=== PATIENT | female | born 1970 | race Caucasian/White ===

== ENCOUNTER → 2019-03-26 16:55 | Outpatient (CLI) | payer SELFPAY ==
[2019-01-09 10:34] VITALS: BMI 23.1
--- NOTE | 2019-03-26 17:01 | CT_ITS ---
STUDY: CT ABDOMEN AND PELVIS WITH CONTRAST REASON FOR EXAM: Female, 48 years old. Palpable rectal mass. TECHNIQUE: Transaxial images were obtained from the dome of the diaphragm to the symphysis pubis with oral contrast. 100 cc Isovue-300 IV contrast was administered. Sagittal and coronal images were reconstructed. Individualized dose optimization techniques were used for this CT. COMPARISON: None. FINDINGS: Bowel: A lobular, heterogenous mass, difficult to separate from the distal rectal wall, extends cephalad into the bilateral perirectal fat, right greater than left, 8.5 x 4.7 x 6.7 cm TRV X AP X craniocaudad. A small focus of air posteriorly (series 2 image 97) is difficult to localize in regards the rectal lumen. The portions of the mass extending into the more cephalad perirectal fat have low density centrally. More inferiorly, in the fat of the right medial buttocks, there is a small collection of fluid and air measuring 2 cm diameter. This mass narrows the distal rectal wall with mildly prominent stool within the more proximal large bowel but no luminal dilation. The mass is difficult to separate from the right greater than left pelvic floor muscles. The remainder of the bowel is unremarkable. Normal appendix. Partially visualized lower chest: Lung bases unremarkable. Liver: No concerning lesions. Gallbladder and biliary tree: No visible gallstones. No pericholecystic inflammation. No biliary ductal dilation. Pancreas: No pancreatic lesions or inflammation. Spleen: Normal size, no splenic lesions. Adrenal glands: 1.8 cm diameter indeterminant density left adrenal mass. Right adrenal gland normal. Kidneys and ureters: No hydronephrosis or renal stones. No concerning masses. No ureteral dilation. Urinary bladder: No stones or wall thickening. A fat plane is evident between the mass and the urinary bladder. Reproductive: The right lateral aspect of the vagina is difficult to separate from a portion of the mass. Small fibroids are incidentally noted in the uterine fundus, largest 2.6 cm diameter. Both ovaries are normal and separate from the mass. Vascular: No abdominal aortic aneurysm. The systemic, portal, and mesenteric veins are patent. Minimal atherosclerosis. Retroperitoneal and peritoneal spaces: Mild lymphadenopathy in the perirectal fat cephalad to the mass. No free air or free fluid. Osseous: No acute osseous abnormality. No suspicious osseous lesions. Abdominal and pelvic wall: Shotty mildly prominent but not definitively pathologic right greater than left inguinal lymph nodes. CT/Abdomen/Pelvis WITH Contrast IMPRESSION: Lower pelvic mass, probably rectal in origin, described in detail above. The portions of the mass extending into the right greater than left perirectal fat have low density centrally which could represent necrosis or superimposed infection/abscess due to communication with the rectal lumen. A small focus of air and fluid along the posterior margin of the rectum just above the mass is difficult to localize and may be extraluminal, communicating with the left perirectal portion of the mass. An additional 2 cm diameter collection of fluid and air in the right medial buttock subcutaneous fat could represent sequela of a fistulous tract. The right lateral aspect of the vagina is difficult to separate from the anterior aspect of the mass, and the mass is difficult to separate from the pelvic floor muscles, likely representing invasion of these structures. Mild perirectal lymphadenopathy cephalad to the mass is concerning for metastatic disease. Indeterminate 1.8 cm diameter left adrenal lesion could represent a metastasis or an adenoma; comparison with priors would be helpful follow-up noncontrast CT might differentiate if no priors are available. Mildly prominent right greater than left inguinal lymph nodes; metastatic disease is possible but not definitive here as well. The more proximal large bowel contains prominent stool but is not dilated suggestive of constipation perhaps due to the mass. No shirin obstruction however. Electronically Signed: Cristobal Antonio, at 19:42 EST Tel , Service support ,
== END ==
PROVIDERS: Family Provider Internal Medicine; PCP Internal Medicine; Referring Provider Internal Medicine; Visit Provider Internal Medicine
DX: K62.89 Other specified diseases of anus and rectum (principal)
CPT/HCPCS: 74177; Q9967

== ENCOUNTER → 2019-03-27 11:08 | Outpatient (CLI) | payer OTHER, SELFPAY ==
[2019-01-09 10:34] VITALS: BMI 23.1
[2019-03-30 16:09] LABS: HPV Reflexed? NOT INDICATED
== END ==
PROVIDERS: Family Provider Internal Medicine; PCP Internal Medicine; Referring Provider Internal Medicine; Visit Provider Internal Medicine
DX: Z01.419 Encounter for gynecological examination (general) (routine) without abnormal findings (principal)
CPT/HCPCS: 88175; G0145

== ENCOUNTER 2019-04-02 05:19 | Day surgery (SDC) | payer SELFPAY ==
[2019-03-29 10:16] VITALS: BMI 23.5
[2019-04-02] VITALS (7 sets, daily range): BP systolic 102–110; BP diastolic 66–83; PULSE 70–106; RESP 14–16; TEMP 36.2–36.6; O2SAT 99–100; BMI 22.8
--- NOTE | 2019-04-02 05:46 | PCM.HP.BLA ---
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: No Is patient in pain?: No Allergies No Known Allergies Allergy (Verified 03/29/19 10:17) Medications multivitamin tablet 1 tab PO DAILY 01/09/19 [History Confirmed 03/29/19] Is last menstrual period known: No Post menopausal: Yes Patient : No PFSH Medical History Anxiety (Acute) Pilonidal abscess (Acute) Surgical History No history of previous surgery (Acute) Social History (Updated 03/29/19 @ 14:44 by Jatinder Maxwell MD) Smoking Status: Never smoker alcohol intake: never substance use type: does not use HPI HPI HPI: CESIA SWANSON is a 48 F who presents to the office today for HPI HPI Surgical H&P: Yes HPI: CESIA SWANSON, is a 48 F who presents to the office today for surgical consultation regarding rectal bleeding and rectal mass. The patient was referred by her primary care physician Dr. Georgette Warren and a written copy of my surgical consult and recommendations will be returned to her. Upon interviewing the patient today she claims that for 2 years she has had rectal bleeding blood streaking on the stool. It was on a routine primary care check that it was detected that she had a rectal mass. On March 06 she had laboratory obtained demonstrating hemoglobin of 9.8 and hematocrit of 29.5. Previously November 2017 her hemoglobin has been 13.2. She otherwise denies abdominal pain. She states that she does weigh herself and that she is not seemingly lost any weight. She denies abdominal pain. No nausea or vomiting. She claims that she otherwise feels well. Family history notable for brother with Crohn's and an uncle with diabetes. Because of the rectal mass at the [facility] on March 26, [address] scan performed. The full interpretation follows. This noticed that there is a rectal mass measuring 8.5 x 4.7 x 6.7 cm. There is seems to be vaginal wall involvement. There appears to be localized lymphadenopathy. In addition there is a small focus of air along the posterior margin of the rectum and its extraluminal. There is air in the right medial buttock area and subcutaneous fat and a fistulous tract. It is of note that 2 months ago in the office here she had what appeared to be a pilonidal cyst that was drained. She was seen back that seemed to improve her symptoms. At that time there was not evidence of the primary issue. And the patient made no comment regarding her 2-year history of rectal bleeding at that time. [facility] Imaging Services [address] [place] [address] Abdomen/Pelvis WITH Contrast MR#: [id number]:[id number] Name: Placido SWANSON #:[id number] : 1970F 48 From: Cristobal Antonio MD PCP:Georgtete Warren MD Status:REG CLI Study:Abdomen/Pelvis WITH Contrast Date of Exam:03/26/19 Exam#[id number] Ordering Dr: Georgette Warren MD ADDENDUM by Cristobal Antonio MD on 03/26/19 at 1942 STUDY: CT ABDOMEN AND PELVIS WITH CONTRAST REASON FOR EXAM: Female, 48 years old. Palpable rectal mass. TECHNIQUE: Transaxial images were obtained from the dome of the diaphragm to the symphysis pubis with oral contrast. 100 cc Isovue-300 IV contrast was administered. Sagittal and coronal images were reconstructed. Individualized dose optimization techniques were used for this CT. COMPARISON: None. FINDINGS: Bowel: A lobular, heterogenous mass, difficult to separate from the distal rectal wall, extends cephalad into the bilateral perirectal fat, right greater than left, 8.5 x 4.7 x 6.7 cm TRV X AP X craniocaudad. A small focus of air posteriorly (series 2 image 97) is difficult to localize in regards the rectal lumen. The portions of the mass extending into the more cephalad perirectal fat have low density centrally. More inferiorly, in the fat of the right medial buttocks, there is a small collection of fluid and air measuring 2 cm diameter. This mass narrows the distal rectal wall with mildly prominent stool within the more proximal large bowel but no luminal dilation. The mass is difficult to separate from the right greater than left pelvic floor muscles. The remainder of the bowel is unremarkable. Normal appendix. Partially visualized lower chest: Lung bases unremarkable. Liver: No concerning lesions. Gallbladder and biliary tree: No visible gallstones. No pericholecystic inflammation. No biliary ductal dilation. Pancreas: No pancreatic lesions or inflammation. Spleen: Normal size, no splenic lesions. Adrenal glands: 1.8 cm diameter indeterminant density left adrenal mass. Right adrenal gland normal. Kidneys and ureters: No hydronephrosis or renal stones. No concerning masses. No ureteral dilation. Urinary bladder: No stones or wall thickening. A fat plane is evident between the mass and the urinary bladder. Reproductive: The right lateral aspect of the vagina is difficult to separate from a portion of the mass. Small fibroids are incidentally noted in the uterine fundus, largest 2.6 cm diameter. Both ovaries are normal and separate from the mass. Vascular: No abdominal aortic aneurysm. The systemic, portal, and mesenteric veins are patent. Minimal atherosclerosis. Retroperitoneal and peritoneal spaces: Mild lymphadenopathy in the perirectal fat cephalad to the mass. No free air or free fluid. Osseous: No acute osseous abnormality. No suspicious osseous lesions. Abdominal and pelvic wall: Shotty mildly prominent but not definitively pathologic right greater than left inguinal lymph nodes. 03/26/191941 Date cc: Georgette Warren MD ~* Signed ADDENDUM by Cristobal Antonio MD on 03/26/[address]/Abdomen/Pelvis WITH Contrast IMPRESSION: Lower pelvic mass, probably rectal in origin, described in detail above. The portions of the mass extending into the right greater than left perirectal fat have low density centrally which could represent necrosis or superimposed infection/abscess due to communication with the rectal lumen. A small focus of air and fluid along the posterior margin of the rectum just above the mass is difficult to localize and may be extraluminal, communicating with the left perirectal portion of the mass. An additional 2 cm diameter collection of fluid and air in the right medial buttock subcutaneous fat could represent sequela of a fistulous tract. The right lateral aspect of the vagina is difficult to separate from the anterior aspect of the mass, and the mass is difficult to separate from the pelvic floor muscles, likely representing invasion of these structures. Mild perirectal lymphadenopathy cephalad to the mass is concerning for metastatic disease. Indeterminate 1.8 cm diameter left adrenal lesion could represent a metastasis or an adenoma; comparison with priors would be helpful follow-up noncontrast CT might differentiate if no priors are available. Mildly prominent right greater than left inguinal lymph nodes; metastatic disease is possible but not definitive here as well. The more proximal large bowel contains prominent stool but is not dilated suggestive of constipation perhaps due to the mass. No shirin obstruction however. N.B. : Dr. Georgette Warren MD, confirmed on 03/27/2019 06:32:18 (ET) that the referring physician received the radiology report. Electronically Signed: Cristobal Antonio, at 19:42 EST Tel , Service support , 03/27/19 0639 Date cc: Georgette Warren MD ~* Signed STUDY: CT ABDOMEN AND PELVIS WITH CONTRAST REASON FOR EXAM: Female, 48 years old. Palpable rectal mass. TECHNIQUE: Transaxial images were obtained from the dome of the diaphragm to the symphysis pubis with oral contrast. 100 cc Isovue-300 IV contrast was administered. Sagittal and coronal images were reconstructed. Individualized dose optimization techniques were used for this CT. COMPARISON: None. FINDINGS: Bowel: A lobular, heterogenous mass, difficult to separate from the distal rectal wall, extends cephalad into the bilateral perirectal fat, right greater than left, 8.5 x 4.7 x 6.7 cm TRV X AP X craniocaudad. A small focus of air posteriorly (series 2 image 97) is difficult to localize in regards the rectal lumen. The portions of the mass extending into the more cephalad perirectal fat have low density centrally. More inferiorly, in the fat of the right medial buttocks, there is a small collection of fluid and air measuring 2 cm diameter. This mass narrows the distal rectal wall with mildly prominent stool within the more proximal large bowel but no luminal dilation. The mass is difficult to separate from the right greater than left pelvic floor muscles. The remainder of the bowel is unremarkable. Normal appendix. Partially visualized lower chest: Lung bases unremarkable. Liver: No concerning lesions. Gallbladder and biliary tree: No visible gallstones. No pericholecystic inflammation. No biliary ductal dilation. Pancreas: No pancreatic lesions or inflammation. Spleen: Normal size, no splenic lesions. Adrenal glands: 1.8 cm diameter indeterminant density left adrenal mass. Right adrenal gland normal. Kidneys and ureters: No hydronephrosis or renal stones. No concerning masses. No ureteral dilation. Urinary bladder: No stones or wall thickening. A fat plane is evident between the mass and the urinary bladder. Reproductive: The right lateral aspect of the vagina is difficult to separate from a portion of the mass. Small fibroids are incidentally noted in the uterine fundus, largest 2.6 cm diameter. Both ovaries are normal and separate from the mass. Vascular: No abdominal aortic aneurysm. The systemic, portal, and mesenteric veins are patent. Minimal atherosclerosis. Retroperitoneal and peritoneal spaces: Mild lymphadenopathy in the perirectal fat cephalad to the mass. No free air or free fluid. Osseous: No acute osseous abnormality. No suspicious osseous lesions. Abdominal and pelvic wall: Shotty mildly prominent but not definitively pathologic right greater than left inguinal lymph nodes. CT/Abdomen/Pelvis WITH Contrast IMPRESSION: Lower pelvic mass, probably rectal in origin, described in detail above. The portions of the mass extending into the right greater than left perirectal fat have low density centrally which could represent necrosis or superimposed infection/abscess due to communication with the rectal lumen. A small focus of air and fluid along the posterior margin of the rectum just above the mass is difficult to localize and may be extraluminal, communicating with the left perirectal portion of the mass. An additional 2 cm diameter collection of fluid and air in the right medial buttock subcutaneous fat could represent sequela of a fistulous tract. The right lateral aspect of the vagina is difficult to separate from the anterior aspect of the mass, and the mass is difficult to separate from the pelvic floor muscles, likely representing invasion of these structures. Mild perirectal lymphadenopathy cephalad to the mass is concerning for metastatic disease. Indeterminate 1.8 cm diameter left adrenal lesion could represent a metastasis or an adenoma; comparison with priors would be helpful follow-up noncontrast CT might differentiate if no priors are available. Mildly prominent right greater than left inguinal lymph nodes; metastatic disease is possible but not definitive here as well. The more proximal large bowel contains prominent stool but is not dilated suggestive of constipation perhaps due to the mass. No shirin obstruction however. Electronically Signed: Cristobal Antonio, at 19:42 EST Tel , Service support , CC: Georgette Warren MD ~ Submersible Pilot: Signed ROS General General: No weight change, appetite, fatigue, colon cancer, breast cancer or weakness HEENT HEENT: No difficulty swallowing, eye injury, eye surgery, swollen glands or hoarseness Endo Endocrine: No thyroid disease, diabetes mellitus, thyroid cancer, Hair loss, heat intolerance or cold intolerance Skin Skin: No rash or changing moles Breast Breast: No left breast lump, right breast lump, nipple discharge, breast pain, abnormal mammogram, abnormal US or breast enlargement Musc Musculoskeletal: No back problems, arthritis, rheumatoid arthritis, gout or joint pain Cardio Cardiovascular: No murmur, pacemaker, heart disease, atrial fibrillation, high blood pressure, heart attack, heart stent, palpitations, shortness of breat with exertion or chest pain Psych Psychiatric: Yes anxiety; no depression or hearing voices Resp Respiratory: No shortness of breath, No sleep apnea, No cough, No COPD, No asthma, No emphysema, No wheezing Gastro Gastrointestinal: No abdominal pain, No nausea or vomiting, Yes diarrhea, No constipation, No blood in stool, No acid reflux, No hemorrhoids, No ulcers, No gallbladder problem, No black,tarry stools Luke Hematologic: No blood thinners, No blood disorders, No bleeding, No anemia, No blood clots Neuro Neurologic: No weakness Exam Const General: cooperative Nutritional Appearance: average body habitus Orientation: alert, awake, oriented x3 Other: Patient appears to be pale. No acute distress HENMT Head: normal to inspection Chest Breast Palpation: No nipple discharge Resp Effort & Inspection: normal respiratory effort Auscultation: clear to auscultation bilaterally Cardio Rate: regular rate Rhythm: regular rhythm Heart Sounds: no murmurs GI Palpation: soft, no hepatosplenomegaly Auscultation: normal bowel sounds Other: Rectal exam was deferred to time of colonoscopy Skin General: no rashes or lesions noted Neuro Cognition: normal cognition Extrem General: no calf tenderness bilaterally Psych Affect: normal affect Assessment & Plan Problems 1. Rectal mass K62.89 Plan Today was an extensive 60-minute appointment with the patient and her . In detail I discussed with him the findings of the CT including the fistulous tract to the skin and the possible adjacent adherence to the vagina and the suspected lymph node involvement and a large rectal mass in addition to the seemingly benign abnormal findings of the uterus. We briefly discussed treatment options which would include chemotherapy and radiation. I suggested to them that at this time the lesion was not resectable. The patient might be a future candidate for an aggressive total abdominal hysterectomy with perineal resection vaginectomy and proctocolectomy i.e. a pelvic exenteration. They initially had concerns that performing a needle biopsy would spread the lesion. I have instructed them that there is current evidence of spread already. At this point I am strongly recommending that we perform a colonoscopy. I am recommending that we then obtain hematology oncology consultation and they are also aware that we will need radiation oncology consultation. They are aware of the technique, benefits, risks, alternatives of colonoscopy with possible biopsy. They are aware that the lesion may be partially obstructing and I may not be able to complete the entire procedure. They are aware of the importance of obtaining a tissue sample for diagnosis. They have had an opportunity to ask and have questions answered. We will schedule and expedite her care and proceed with colonoscopy already on Tuesday. I very much appreciate the kind opportunity of assisting with her surgical care CC: Dr. Georgette Maxwell M.D., F.A.C.S. Orders Orders: Colonoscopy Today K62.89, R93.5 Coding Level of Care Code 28405 Diagnoses Rectal mass K62.89 03/29/19 1444 <Electronically signed by Jatinder Maxwell MD> Date Jatinder Maxwell MD Cosigner Signature: Date (if applicable) CC: Georgette Warren MD ~ I have re-examined the patient. There are no clinical changes since date of exam.
[2019-04-02] MEDS: Lactated Ringers 1,000 ML 100 ML IV (05:51)
[2019-04-02 05:58] LABS: Internal QC Validated? YES +Cl - CLEAR BKGD; Pregnancy, Urine Negative Negative
--- NOTE | 2019-04-02 06:30 | COLBX_PTH ---
PATIENT: CESIA SWANSON LOC: EN U#:[id number] AGE/SX: 48/F ROOM: RE04/02/[address]: Dr. Jatinder Maxwell MD : 1970 BED: DIS: 04/02/2019 SPEC #: [id number] RECD: 04/02/19 09:12 STATUS: JOHNNY KAY #: [id number] GABINO: 04/02/19 06:[address]: Jatinder Maxwell DEPT: SURGICAL PATHOLOGY RECD BY: Jorge Pinzon ENTERED: 04/02/19 10:18 SP TYPE: COLON BX OTHR DR: MD Georgette Villa MD Tissues: A - Sigmoid colon biopsy B - Rectum, NOS Procedures: Surgery Specimen Level IV HEADER OPERATION: Colonoscopy (MAC) PRE-OP DIAGNOSIS: Rectal bleeding, rectal mass TISSUE SUBMITTED: A - Mid sigmoid polyp, B - Biopsy of distal rectum mass MICROSCOPIC DIAGNOSIS A. Mid sigmoid polyp, biopsy: Tubular adenoma. B. Distal rectum mass, biopsy: Fragments of tubular adenoma with focal high grade dysplasia. See comment. SHAN:william 04/03/19 COMMENT B. Focal area suspicious for carcinoma in situ and invasive carcinoma is noted. Correlation with clinical, endoscopic findings and appropriate follow up are necessary. Case has been reviewed in consultation with Dr. Christensen who concurs with the above diagnosis. IDC:AM MICROSCOPIC DESCRIPTION Slides are reviewed. GROSS DESCRIPTION A - Received in fixative is one container labeled with the patient's name and designated mid sigmoid polyp. The specimen consists of a pink-red polyp measuring 1 x 0.6 x 0.5 cm. The apparent base is inked. The polyp is bisected and submitted entirely in one cassette. B - Received in fixative is one container labeled with the patient's name and designated distal rectum mass. The specimen consists of multiple irregular fragments of light stewart soft tissue that in aggregate measure 0.5 x 0.3 x 0.1 cm. The specimen is totally submitted in one cassette. / SHAN:william 04/02/19 TC:5 CPT: 16972 x2 ADDENDUM ADDENDUM ADDENDUM ADDENDUM ADDENDUM ADDENDUM ADDENDUM ADDENDUM ADDENDUM ADDENDUM ADDENDUM ADDENDUM ADDENDUM 05/11/2019 10:10 ADDENDUM 05/11/2019 10:10 ADDENDUM 05/11/2019 10:10 ADDENDUM 05/11/2019 10:10 ADDENDUM 05/11/2019 10:10 This addendum is added to incorporate an outside pathology consultation report. The case was examined at [facility] (#[id number]) and the following diagnosis was rendered. A. Mid sigmoid polyp, biopsy: Tubulovillous adenoma. B. Distal rectum mass, biopsy: Small fragments of adenomatous mucosa with focal high grade dysplasia and a rare microscopic focus suspicious for in situ/intramucosal adenocarcinoma. Please see complete above mentioned consultation report in EMR
--- NOTE | 2019-04-02 07:02 | OP.COLON_ITS ---
Patient Name: Simona Braga Procedure Date: 04/02/2019 5:53 AM Date of : 1970 Age: 48 Procedure: Colonoscopy Indications: Rectal bleeding, Abnormal CT of the GI tract Providers: Jatinder Maxwell MD Referring MD: Georgette Warren Medicines: See the Anesthesia note for documentation of the administered medications Patient Profile: Last Colonoscopy: none. The patient's first colonoscopy is today. Complications: No immediate complications. Procedure: Pre-Anesthesia Assessment: - Prior to the procedure, a History and Physical was performed, and patient medications and allergies were reviewed. The patient's tolerance of previous anesthesia was also reviewed. The risks and benefits of the procedure and the sedation options and risks were discussed with the patient. All questions were answered, and informed consent was obtained. Prior Anticoagulants: The patient has taken no previous anticoagulant or antiplatelet agents. ASA Grade Assessment: II - A patient with mild systemic disease. After reviewing the risks and benefits, the patient was deemed in satisfactory condition to undergo the procedure. After I obtained informed consent, the scope was passed under direct vision. Throughout the procedure, the patient's blood pressure, pulse, and oxygen saturations were monitored continuously. The pediatric colonoscope was introduced through the anus and advanced to the cecum, identified by appendiceal orifice and ileocecal valve. The colonoscopy was performed without difficulty. The patient tolerated the procedure well. The quality of the bowel preparation was good. The ileocecal valve and the appendiceal orifice were photographed. Scope In: 6:34:42 AM Scope Withdrawal Time 0 hours 13 minutes 0 seconds Scope Out: 6:53:21 AM Total Procedure Duration Time 0 hours 18 minutes 39 seconds Findings: The digital rectal exam findings include palpable rectal mass. A 11 mm polyp was found in the mid sigmoid colon. The polyp was pedunculated. The polyp was removed with a hot snare. Resection and retrieval were complete. The exam was otherwise without abnormality. A fungating and sessile partially obstructing large mass was found in the distal rectum. The mass was circumferential. This was biopsied with a cold forceps for histology. Impression: - Palpable rectal mass found on digital rectal exam and on endoscopy. Biopsy obtained. - One 11 mm polyp in the mid sigmoid colon, removed with a hot snare. Resected and retrieved. - The examination was otherwise normal. Recommendation: - Discharge patient to home. - Resume previous diet. - Continue present medications. - Refer to an oncologist in 3 days. - Telephone my office for pathology results in 1 week. - Repeat colonoscopy in 1 year for surveillance. Procedure Code(s): --- Professional --- 13782, Colonoscopy, flexible; with removal of tumor(s), polyp(s), or other lesion(s) by snare technique 88803, 59, Colonoscopy, flexible; with biopsy, single or multiple Diagnosis Code(s): --- Professional --- K62.89, Other specified diseases of anus and rectum D12.5, Benign neoplasm of sigmoid colon K62.5, Hemorrhage of anus and rectum R93.3, Abnormal findings on diagnostic imaging of other parts of digestive tract CPT copyright 2017 [employer]. All rights reserved. The codes documented in this report are preliminary and upon director of blood review may be revised to meet current compliance requirements. Jatinder Maxwell MD 04/02/2019 7:01:52 AM This report has been signed electronically. Number of Addenda: 0 Note Initiated On: 04/02/2019 5:53 AM
== END 2019-04-02 07:52 | disposition home or self-care (01) ==
LOC: EN 05:21 → AC 05:22
PROVIDERS: Anesthesiology; Family Provider Internal Medicine; PCP Internal Medicine; Referring Provider Internal Medicine; Visit Provider Surgery
PROC: 0DJD8ZZ Inspection of Lower Intestinal Tract, Via Natural or Artificial Opening Endoscopic (ICD-10-PCS; CPT 45378; principal; 2019-04-02 06:25)
DX: D12.5 Benign neoplasm of sigmoid colon (principal); D12.8 Benign neoplasm of rectum; F41.9 Anxiety disorder, unspecified; Z78.0 Asymptomatic menopausal state
CPT/HCPCS: 45380; 45385; 81025; 88305; J7120; J2405

== ENCOUNTER → 2019-04-04 15:59 | Outpatient (CLI) | payer SELFPAY ==
[2019-04-02 05:40] VITALS: BMI 22.8
[2019-04-09 13:46] LABS: G6PD Quant Test 290 (146-376)
== END ==
PROVIDERS: Family Provider Internal Medicine; PCP Internal Medicine; Referring Provider Nurse Practitioner Family; Visit Provider Nurse Practitioner Family
DX: R53.82 Chronic fatigue, unspecified (principal); M62.81 Muscle weakness (generalized)
CPT/HCPCS: 36415; 82955

== ENCOUNTER 2019-05-21 21:19 | Emergency (ER) | payer SELFPAY ==
[2019-04-02 05:40] VITALS: BMI 22.8
[2019-05-21 21:20] VITALS: BP 99/64; PULSE 124; RESP 18; TEMP 39.4; O2SAT 100; BMI 23.8
[2019-05-21 21:24] VITALS: BP 99/64; PULSE 124; RESP 18; TEMP 39.4; O2SAT 100
[2019-05-21] MEDS: 0.9% Normal Saline 1,000 ML 999 ML IV (21:45)
--- NOTE | 2019-05-21 21:57 | ED.VISSUMM ---
- ER Visit Summary Date of Service: 05/21/19 Chief Complaint: Fever History of Present Illness: The patient is a 49 F who presents with fever that began today. Patient has a history of colorectal cancer and is on chemotherapy through the [facility], [place]. Patient was there today for chemotherapy treatment however they would not perform the chemotherapy because of a low white blood cell count. Patient had a fever of 101.8 at home. Patient was told to come to the emergency department because of the fever. Patient is on antibiotics for a perirectal abscess. Patient states this has been open and is draining. Patient states her pain is worse with bowel movements. Patient states that it improves with Epson salt soaks. Physical Examination: Vital signs are stable except for a tachycardia of 124. Patient does have a temperature of 103.0 here. Patient is in no acute distress. Oral mucosa is pink and moist. Neck is supple. Trachea is midline. There is no JVD. Heart was regular and tachycardic. Lungs are clear and equal bilaterally. Abdomen is soft. Bowel sounds are normal. There is no tenderness. There is no rebound or guarding noted. Cranial nerves II through XII are intact. There are no focal motor or sensory deficits noted. Skin is warm and dry. There is a perirectal abscess along the right gluteal area near the midline that is open and draining. There is induration. There is no fluctuance. Test Results: CBC shows a white blood cell count of 2.5. Absolute neutrophil count was 1.0. Hemoglobin was 8.3. Hematocrit was 26.2. Basic metabolic profile was essentially within normal limits. INR is 1.3. PTT is 29.8. Urinalysis does not show any evidence of urinary tract infection. Lactate was normal. Blood cultures were drawn and are pending. Portable chest x-ray was obtained. There is no acute cardiopulmonary process. This was interpreted by myself and the radiologist. Emergency Department Course and Treatment: Patient was given Tylenol here. Patient was given IV fluids. Patient was started on meropenem and vancomycin. Patient was feeling better on reevaluation. Patient was advised that she would need to be admitted. Patient wants to go to the [facility] at [facility] where she gets all of her cancer treatments. Case was discussed with the transfer center at the [facility]. Patient will be transferred there. Patient understands and is agreeable with the plan. All questions were answered. Disposition: Transfer to [facility] Impression: Neutropenic fever This note was generated with Next audience dictation software. It may contain incorrect words, spelling, and punctuation that were not noted in review of the chart prior to signing ED Disposition - Plan for ED Patient: Disposition: [facility] Diagnosis: Neutropenic fever Referrals: Georgette Warren MD [Primary Care Provider] -
[2019-05-21 22:19] VITALS: BP 106/66; PULSE 106; RESP 18; O2SAT 97
[2019-05-21 22:24] VITALS: TEMP 37.3
[2019-05-21 22:54] LABS: ALB/GLOB Ratio 0.7 RATIO (0.9-2.4); AST(SGOT) 22 U/L (15-37); Alanine Aminotransfer ALT/SGPT 49 U/L (13-56); Albumin, Serum 2.7 g/dL (3.2-5.0); Alkaline Phosphatase 58 U/L (45-117); Anion Gap 8 (5-15); BUN 15 mg/dL (7-18); BUN/Creat Ratio 21.3 RATIO (10-20); Calcium,Total 8.3 mg/dL (8.5-10.1); Chloride 108 mmol/L (98-107); EST Glomerular Filtration Rate 93 mL/min (>60); Est Glom Filt Rate - Afr Amer 113 mL/min (>60); Globulin 3.9 g/dL (2.2-4.2); Glucose 109 mg/dL (74-106); Potassium 3.4 mmol/L (3.5-5.1); Protein, Total 6.6 g/dL (6.4-8.2); Sodium Level 141 mmol/L (136-145)
[2019-05-21] MEDS: Acetaminophen 500 MG Tablet 1000 MG PO (22:55)
[2019-05-21 22:58] LABS: Absolute Lymphocyte Count 0.53 X10^3/uL (0.83-4.51); Basophil# 0.01 X10^3/uL; Basophil% 0.4 % (0-1); Eosinophil# 0.08 X10^3/uL; Eosinophils% 3.2 % (0-5); Hematocrit 26.2 % (37-47); Hemoglobin 8.3 g/dL (12.0-15.0); Lymphocyte # 0.53 X10^3/ul (4.0); Lymphocyte % 21.2 % (19-41); Mean Corp Hgb Conc 31.7 g/dL (32-36); Mean Corpuscular Hgb 25.9 pg (27.0-32.0); Mean Corpuscular Volume 81.9 fL (81-99); Mean Platelet Vol. 9.8 fl (6.2-12.0); Monocyte# 0.87 X10^3/uL; Monocyte% 34.8 % (0-10); NRBC Flagged by Analyzer 0 % (0-5); Neutrophil # 0.99 X10^3/uL (2.7-7.7); Neutrophil % 39.6 % (47-70); POSITIVE DIFFERENTIAL YES; POSITIVE MORPHOLOGY YES; Platelet Count 298 K/mm3 (150-450); RBC Distribution Width CV 12.7 % (11.6-14.6); White Blood Count 2.5 K/mm3 (4.4-11.0)
[2019-05-21 23:00] VITALS: BP 106/66; PULSE 101; RESP 19; O2SAT 96
[2019-05-21 23:02] LABS: Bacteria 0 SEEN /hpf (None Seen); Mucous, Urine 0 SEEN /hpf (<or=2+); Red Blood Cells-Urine 0 SEEN /hpf (0-5); Squamous Epithelial Cells - UA 0 SEEN /hpf (5-10); White Blood Cells 0 SEEN /hpf (0-5)
[2019-05-21 23:04] LABS: Differential Indicated SCAN CRITERIA MET
[2019-05-21 23:06] LABS: International Normalized Ratio 1.3; Partial Thromboplast Time 29.8 Seconds (24.1-36.2); Prothrombin Time (Protime)PT. 16.4 SECONDS (11.7-14.9)
[2019-05-21 23:13] LABS: Lactic Acid 1.1 mmol/L (0.4-1.9)
[2019-05-21 23:16] LABS: Differential Comment SCANNED
[2019-05-21 23:20] LABS: Color, Urine Yellow (Yellow); Glucose, Dipstick Normal (Normal); Ketone-Dipstick Negative (Negative); Leukocyte Esterase-Dipstick Negative /ul (Negative); Nitrite-Dipstick Negative (Negative); Occult Blood-Urine Negative /ul (Negative); Protein-Dipstick 30 mg/dl (Negative); Urine Bilirubin Dipstick Negative (Negative); Urine Clarity Sl. Cloudy (Clear); Urine Urobilinogen 4 mg/dl (Normal)
[2019-05-21 23:21] LABS: Amorphous Sediment 1+
[2019-05-21] MEDS: Vancomycin IV 1,000 MG/200 ML BAG 200 MG IV (23:30)
--- NOTE | 2019-05-21 23:44 | RAD_ITS ---
HISTORY: neutropenic fever ADDITIONAL HISTORY: None provided. TECHNIQUE: Frontal chest radiograph. Number of images including paperwork: 1 COMPARISON: None FINDINGS: LUNGS AND PLEURA: No consolidation, mass or pleural effusion. CARDIAC SILHOUETTE: Unremarkable. MEDIASTINUM AND LALA: Unremarkable. UPPER ABDOMEN: Unremarkable. SKELETON AND SOFT TISSUES: No acute findings. OTHER DEVICES AND HARDWARE: Dual lumen right chest power port with catheter tip at the cavoatrial junction. RAD/Chest 1 View (Portable) IMPRESSION: No acute findings on this portable exam. Follow-up as clinically indicated. at 0021 Reported and signed by: Indira Avalos MD Electronically Signed: Indira Avalos MD at 0:20 EST Tel , Service support ,
[2019-05-22] VITALS: BP 98/59; PULSE 108; RESP 17; O2SAT 97
[2019-05-22 01:00] VITALS: BP 95/57; PULSE 104; RESP 19; O2SAT 97
[2019-05-22 01:42] VITALS: RESP 18
[2019-05-22 13:43] LABS: Pathologist Review Reviewed
== END 2019-05-22 01:44 | disposition short-term general hospital (02) ==
PROVIDERS: Emergency Provider Emergency Medicine; Family Provider Internal Medicine; PCP Internal Medicine
DX: D70.9 Neutropenia, unspecified (principal); R50.81 Fever presenting with conditions classified elsewhere; C18.9 Malignant neoplasm of colon, unspecified; K61.1 Rectal abscess; Z79.899 Other long term (current) drug therapy
CPT/HCPCS: 71045; 80053; 81001; 83605; 83735; 84100; 85025; 85610; 85730; 87040; 96361; 96365; 96366; 96367; 99285; J2185; J7030; A4216

== ENCOUNTER → 2022-01-04 | Outpatient (CLI) | payer SELFPAY ==
[2022-01-04 12:05] LABS: Absolute Lymphocyte Count 1.14 X10^3/uL (0.83-4.51); Absolute Neutrophil Count 2.8 X10^3/uL (2.0-7.7); Basophil# 0.01 X10^3/uL; Basophil% 0.2 % (0-1); Eosinophil# 0.06 X10^3/uL; Eosinophils% 1.4 % (0-5); Hematocrit 39.8 % (37-47); Hemoglobin 13.4 g/dL (12.0-15.0); Lymphocyte # 1.14 X10^3/ul (0.83-4.51); Mean Corp Hgb Conc 33.7 g/dL (32-36); Mean Corpuscular Hgb 30.2 pg (27.0-32.0); Mean Corpuscular Volume 89.8 fL (81-99); Mean Platelet Vol. 10.7 fl (6.2-12.0); Monocyte# 0.36 X10^3/uL; Monocyte% 8.2 % (0-10); NRBC Flagged by Analyzer 0 % (0-5); Neutrophil # 2.81 X10^3/uL (2.7-7.7); Platelet Count 232 K/mm3 (150-450); RBC Distribution Width CV 12.3 % (11.6-14.6); RBC Distribution Width SD 40.3 fl (35.1-43.9); Red Blood Count 4.43 M/mm3 (4.2-5.4); White Blood Count 4.4 K/mm3 (4.4-11.0)
[2022-01-04 12:09] LABS: Color, Urine Yellow (Yellow); Glucose, Dipstick Normal (Normal); Ketone-Dipstick Negative (Negative); Leukocyte Esterase-Dipstick Negative /ul (Negative); Nitrite-Dipstick Negative (Negative); Occult Blood-Urine Negative /ul (Negative); Protein-Dipstick Negative (Negative); Specific Gravity, Urine 1.005 (1.002-1.030); Urine Bilirubin Dipstick Negative (Negative); Urine Clarity Clear (Clear); Urine Urobilinogen Normal (Normal)
[2022-01-04 12:28] LABS: AST(SGOT) 17 U/L (15-37); Alanine Aminotransfer ALT/SGPT 31 U/L (13-56); Albumin, Serum 3.8 g/dL (3.2-5.0); Alkaline Phosphatase 76 U/L (45-117); Anion Gap 6 (5-15); BUN 12 mg/dL (7-18); BUN/Creat Ratio 14.2 RATIO (10-20); Calcium,Total 9.3 mg/dL (8.5-10.1); Chloride 108 mmol/L (98-107); Cholesterol 240 mg/dL (200); Creatinine, Serum 0.84 mg/dL (0.55-1.02); EST Glomerular Filtration Rate 75 mL/min (>60); Est Glom Filt Rate - Afr Amer 90 mL/min (>60); Globulin 3.7 g/dL (2.2-4.2); Glucose 95 mg/dL (74-106); High Density Lipoprotein 38 mg/dL; Potassium 3.9 mmol/L (3.5-5.1); Protein, Total 7.5 g/dL (6.4-8.2); Sodium Level 142 mmol/L (136-145); Triglycerides 186 mg/dL; Very Low Density Lipoprotein 37 mg/dL (5-40)
[2022-01-04 12:30] LABS: Vitamin D,25 Hydroxy 45.4 ng/mL
[2022-01-05 16:08] LABS: Red Blood Cell Count Test/G6PD 4.57 x10E6/uL (3.77-5.28)
[2022-01-06 14:33] LABS: G6PD Quant Test 262 (127-427)
== END | disposition home or self-care (01) ==
PROVIDERS: PCP Internal Medicine; Referring Provider Nurse Practitioner Family; Visit Provider Nurse Practitioner Family
DX: R53.82 Chronic fatigue, unspecified (principal); M62.81 Muscle weakness (generalized); Z85.00 Personal history of malignant neoplasm of unspecified digestive organ
CPT/HCPCS: 36415; 80053; 80061; 81002; 82306; 82955; 83880; 85025